=== PATIENT | female | born 1995 | race Caucasian/White ===

== ENCOUNTER 2017-03-26 10:56 | Emergency (ER) | payer OTHER ==
--- OUTSIDE RECORDS SUMMARY | 2017-03-26 14:01 | XMS REPORT ---
:1995 External Reference #:[id number] Author Organization [facility] Address [address] [address] Phone [phone] Care Team Providers Name Role Phone Haley Felix MD Primary Care Physician Unavailable Payers Type Date Identification Numbers Payment Provider Subscriber Commercial Effective: Policy Number: [employer] Karo Reyna 2016 [id number] Group Number: [id number] [id number] PayID: [id number] [place] [address] Problems Description No Information Social History Type Date Description Comments Lives With Alone Occupation Student ETOH Use Currently consumes alcohol Smoking Patient has never smoked Exercise Type/Frequency Exercises regularly Allergies, Adverse Reactions, Alerts Date Description Reaction Status Severity Comments 10/21/2016 NKDA active Medications Medication Date Status Form Strength Qnty SIG Indications Ordering Provider Clonazepam Active Tablets 0.5mg take 1 Unknown 000 tablet by mouth twice a day if needed for anxiety Mirena (52 Active IUD 20mcg/24HR Unknown MG) 000 Depomedrol Active Injection Jaime F 40MG 000 MD Javier Vital Signs Date Vital Result Comment 03/03/2017 Height 68 inches 5'8" Weight 150.00 lb Heart Rate 62 /min Respiratory Rate 15 /min Body Temperature 97.9 F Pain Level 4 BMI (Body Mass Index) 22.8 kg/m2 02/12/2017 Height 68 inches 5'8" Weight 150.00 lb Heart Rate 59 /min BP Systolic 105 mmHg BP Diastolic 66 mmHg Pain Level 5 BMI (Body Mass Index) 22.8 kg/m2 11/13/2016 Height 68 inches 5'8" Weight 150.00 lb Heart Rate 83 /min Respiratory Rate 17 /min Body Temperature 97.1 F Pain Level 4 BMI (Body Mass Index) 22.8 kg/m2 10/21/2016 Height 68 inches 5'8" Weight 150.00 lb BP Systolic 111 mmHg BP Diastolic 73 mmHg Respiratory Rate 17 /min Pain Level 7 BMI (Body Mass Index) 22.8 kg/m2 Results Description No Information Procedures Date CPT Code Description Status 03/03/2017 28227 Inject/Drain Joint/Bursa Major Completed Encounters Type Date Location Provider CPT E/M Dx Office Visit 02/12/2017 [facility] Jaime Herrera, 79222 M25.511 11:15a Of [facility] M25.311 Office Visit 11/13/2016 8:30a [facility] Jaime Herrera, 68287 M25.511 Of [facility] Office Visit 10/21/2016 2:00p [facility] Jaime Herrera, 43972 M25.511 Of [facility] Plan of Care 03/03/2017 - Jaime Herrera, MDM25.511 Pain in right shoulderFollow up: Follow up: As [id number] Other instability, right shoulder
[2017-03-26 14:21] VITALS: BP 115/77
--- NOTE | 2017-03-26 15:09 | ED ---
Dion Wilson Stephanie, scribed for Haley Felix MD on 03/26/17 at 1501 . Complex/Multi-Sys Presentation - HPI Summary HPI Summary: The pt is a 21 y/o F presenting to , 5 days post traumatic laceration of the liver, with c/o decreased energy that began on 03/25/2017. Symptoms include abd pain, dizziness and a dull PEREZ. The pt denies fever, cough, chest congestion, nasal discharge, abnormal BMs and sore throat. The pt was recently hospitalized at [facility] for a ski accident from 03/21/17- 03/25/17. [facility] informed the pt that she was exposed to the flu by one of her hospital roommates. The pt reports receiving an influenza vaccine this season. The pt rates her pain as a 4 in severity. The pt reports L shoulder pain that radiates down her L arm and across the collar bones and sternum into the R shoulder from the ski accident. - History Of Current Complaint Chief Complaint: UCGeneralIllness Time Seen by Provider: 03/26/17 14:38 Hx Obtained From: Patient, Family/Railroad [employer]ant - mother Onset/Duration: Still Present Timing: Constant Severity Currently: Mild Character: Sharp - abd pain Associated Signs And Symptoms: Positive: Dizziness, Headache - dull, Abdominal Pain - Allergies/Home Medications Allergies/Adverse Reactions: Allergies Allergy/AdvReac Type Severity Reaction Status Date / Time Nickel Allergy Unknown Rash Unverified 03/26/17 14:10 Home Medications: Home Medications Acetaminophen TAB* [Tylenol TAB*] 650 mg PO Q4H PRN 03/26/17 [History Confirmed 03/26/17] Gabapentin CAP(*) [Neurontin 100 mg CAP(*)] 200 mg PO TID 03/26/17 [History Confirmed 03/26/17] Levonorgestrel (Iud) [Mirena IUD] 20 mcg IU DAILY 03/26/17 [History Confirmed ] Lidocaine HCl [Aspercreme Lidocaine] 4 % EX QID PRN 03/26/17 [History Confirmed 03/26/17] clonazePAM TAB(*) [KlonoPIN TAB(*)] 0.5 mg PO DAILY PRN 03/26/17 [History Confirmed 03/26/17] PMH/Surg Hx/FS Hx/Imm Hx Previously Healthy: Yes - treatment for anxiety; right shoulder subluxation. Endocrine/Hematology History: Denies: Hx Diabetes Cardiovascular History: Denies: Hx Hypertension, Hx Pacemaker/ICD History: Denies: Hx Renal Disease Sensory History: Denies: Hx Hearing Aid Opthamlomology History: Denies: Hx Legally Blind EENT History: Denies: Hx Deafness Psychiatric History: Reports: Hx Panic Disorder Denies: Hx Eating Disorder, Hx of Violent Episodes Against Others - Surgical History Surgery Procedure, Year, and Place: WISDOM TEETH Infectious Disease History: No Infectious Disease History: Denies: Traveled Outside the [place] in Last 30 Days - Family History Known Family History: Positive: Other - parents living and healthy, mother with elevated cholesterol. - Social History Occupation: Student Lives: Dormitory/Roommates Alcohol Use: Rare Substance Use Type: Reports: None Smoking Status (MU): Never Smoked Tobacco Review of Systems Constitutional: Negative Negative: Fever Negative: Sore Throat, Nasal Discharge Negative: Chest Pain Negative: Cough Positive: Abdominal Pain, Other - Negative: abnormal BM Neurological: Other - dizziness Positive: Headache Positive: Anxious All Other Systems Reviewed And Are Negative: Yes Physical Exam Triage Information Reviewed: Yes Vital Signs On Initial Exam: Initial Vitals Temp Pulse Resp BP Pulse Ox 98.8 F 95 18 115/77 100 03/26/17 14:16 03/26/17 14:16 03/26/17 14:16 03/26/17 14:16 03/26/17 14:16 Appearance: Positive: Ill-Appearing - looks fatigued, with mild facial bruising under the right eye Skin: Positive: Warm, Other - ecchymosis right cheek. Head/Face: Positive: Normal Head/Face Inspection - aside from mild facial bruising Eyes: Positive: EOMI, MELISA, Conjunctiva Clear ENT: Positive: Pharynx normal, TMs normal Respiratory/Lung Sounds: Positive: Clear to Auscultation Cardiovascular: Positive: RRR, Pulses are Symmetrical in both Upper and Lower Extremities Abdomen Description: Positive: No Organomegaly, Soft, Other: - mild tenderness in RUQ without guarding. Bowel Sounds: Positive: Present Neurological: Positive: Alert, Oriented to Person Place, Time, CN Intact II-III , Speech Normal Psychiatric: Positive: Normal - a little drowsy - [place] Coma Scale Best Eye Response: 4 - Spontaneous Best Motor Response: 6 - Obeys Commands Best Verbal Response: 5 - Oriented Coma Scale Total: 15 Diagnostics - Vital Signs Vital Signs Temp Pulse Resp BP Pulse Ox 03/26/17 14:16 98.8 F 95 18 115/77 100 - Laboratory Lab Statement: Any lab studies that have been ordered have been reviewed, and results considered in the medical decision making process. Complex Multi-Symp Course/Dx Course Of Treatment: The pt is a 21 y/o F presenting to with ? decreased energy that began on 03/25/2017. The pt is concerned of flu exposure s/p hospitalization at [facility] s/p ski accident. Pt medications reviewed this visit. Assessment/Plan: influenza exposure. - Diagnoses Differential Diagnoses/HQI/PQRI: Other - flu exposure, post liver laceration 5 days ago. Provider Diagnoses: Exposure to the flu Is Visit Related: No Discharge - Discharge Plan Condition: Stable Disposition: HOME Prescriptions: Oseltamivir CAP* [Tamiflu CAP*] 75 mg PO DAILY #10 cap Patient Education Materials: Influenza (ED) Referrals: Haley Felix MD [Primary Care Provider] - Additional Instructions: For prevention of influenza, begin use of tamiflu 75mg once daily for 10 days. Should you develop symptoms of flu, increase the dose th twice daily and notify my office. As discussed you will decrease the dose of gabapentin to 100mg three times daily. If it is not helping with control of pain, then decrease further to 100mg twice daily for one day, followed by one tab once daily for one day, then stop. Continue acetaminophen for control of pain. Follow up as arranged with me for next week. The documentation as recorded by the Dion fair Stephanie accurately reflects the service I personally performed and the decisions made by me, Haley Felix MD.
== END 2017-03-26 15:30 | disposition home or self-care (01) ==
LOC: UCEAST 10:56
DX: Z20.828 Contact with and (suspected) exposure to other viral communicable diseases (principal)
CPT/HCPCS: 99212; G0463